=== PATIENT | female | born 2000 | race Caucasian/White ===

== ENCOUNTER 2020-10-28 09:55 | Outpatient (REF) | payer OTHER, SELFPAY ==
[2020-10-28 10:26] LABS: COVID-19 Test Negative (Negative)
== END 2020-10-28 09:56 | disposition home or self-care (01) ==
LOC: HO.LAB 09:55
PROVIDERS: Visit Provider Internal Medicine
DX: Z20.822 Contact with and (suspected) exposure to COVID-19 (principal)
CPT/HCPCS: 36415; 87635; C9803

== ENCOUNTER 2024-09-01 19:51 | Inpatient (IN) | payer OTHER, SELFPAY ==
--- NOTE | ~2024-09-01 | US_ITS ---
CLINICAL HISTORY: RUQ pain and tenderness, pls eval for GB stones US Abdomen Limited, Right Upper Quadrant COMPARISON: None provided FINDINGS: Echogenic, shadowing calculi in the gallbladder including a nonmobile calculus in the gallbladder neck. No gallbladder wall thickening. No pericholecystic fluid. Positive sonographic Franks sign. No bile duct dilation. Common bile duct measures 4 mm in diameter. IMPRESSION: Cholelithiasis and positive sonographic Franks sign consistent with acute cholecystitis. This document has been electronically signed by: Adrian Weems MD on 09/01/2024 23:25:37
[2024-09-01 19:53] VITALS: BP 122/83; PULSE 85; RESP 16; TEMP 36.8; O2SAT 98; BMI 50.9
--- NOTE | 2024-09-01 19:53 | ED.ABDPAIN ---
HPI - Abdominal Pain General Chief Complaint: Abdominal Pain Stated Complaint: abd pain & upper back pain Time Seen by Provider: 09/01/24 21:32 History of Present Illness ED Provider: Pancho FONG narrative: The patient is a 23-year-old female who is generally healthy. She has no history of abdominal surgeries. She says a couple of weeks ago she had an episode of right upper quadrant pain after a meal. She may have had some milder episodes in the ensuing 2 weeks but she developed severe pain this evening at around 19:00 after eating ice cream. She feels like the pain waxes and wanes. Sometimes she feels like it is a belt around her upper abdomen. For the most part however she feels the pain in the right upper quadrant. It is somewhat worse when she takes a deep breath. Nausea but no vomiting. No fever, sweats, chills. Related Data Allergies Allergy/AdvReac Type Severity Reaction Status Date / Time No Known Allergies Allergy Verified 09/01/24 19:56 Review of Systems Review of Systems Yes all other systems are reviewed and are negative [facility] Social History Social History Alcohol intake: current Alcohol intake frequency: holidays/special occasions only Smoked in Last 30 Days: Yes Use of substances other than those prescribed or required for medical reasons: Yes Substance Use Type: Marijuana Substance Use Frequency: Daily Advance Directives: No Advance Directives Information Provided: No Do you have a plan to hurt others: No Plan Patient : No Physical Exam ED Vital Signs: Vital Signs - 24 hr 09/01/24 19:53 09/01/24 22:11 Temperature 98.2 F 98.2 F Pulse Rate 85 77 Respiratory Rate 16 18 Blood Pressure 122/83 140/87 H Pulse Oximetry 98 100 Oxygen Delivery Method Room Air Room Air BMI result Body Mass Index 50.9 Const Other: The patient is awake, alert, pleasant, cooperative. She looks uncomfortable. Orientation/consciousness: patient oriented x3 HENMT Other: The face is symmetrical. ?Mucous membranes moist. Eyes Other: Pupils are round equal, conjunctivae are clear, extraocular movements intact Neck Neck: Yes normal visual inspection and Yes full ROM Resp Effort & Inspection: normal respiratory effort Auscultation: clear to auscultation bilaterally Cardio Rate: regular rate Rhythm: regular rhythm Heart sounds: S1 normal heart sound present and S2 normal heart sound present GI Other: The patient is quite tender in the right upper quadrant. The rest of the abdomen is soft and nontender. General: Yes no CVA tenderness Back/Spine/Pelvis Back: no CVA tenderness Skin Other: The skin is dry and unremarkable Neuro General: patient oriented x3, tone normal, moves all extremities, no focal motor deficits and CN's II-XI intact bilaterally Extrem Other: There is no calf swelling or tenderness. No asymmetry. No peripheral edema. Course Course Course Narrative: 09/01/241953 KIMBERLEY Ibarra This is a Rapid Medical Examination (RME) performed by Jaz Wagner PA-C in triage. Full HPI, ROS, assessment and treatment plan per primary provider in the Main ED. Hx: 23 yo F here for eval of RUQ abd pain radiating to back, occrrs after she eats. similar pain 1 wk ago that resolved. Plan: labs Medical Decision Making Medical Decision Making [facility] Narrative: The patient is a 23-year-old female presents with right upper quadrant pain. She says that sometimes she feels that the pain is circling her entire abdomen at the upper abdominal level. Her description of the pain seems highly suggestive of a biliary etiology. Also suggestive of a biliary etiology is the fact that her pain started after she ate ice cream this evening. Pain started at around 19:30. She has had some lesser episodes of pain intermittently over the last couple of weeks. I performed a informal bedside ultrasound at the time of my initial exam that suggested cholelithiasis. Formal ultrasound shows an impacted gallstone and a sonographic Franks's but no gallbladder wall thickening or pericholecystic fluid. She is afebrile and other vital signs are also normal. Her WBC is 11.9. Her differential shows 52% neutrophils and 36% lymphocytes. Overall my impression is that the patient is having severe biliary colic secondary to symptomatic cholelithiasis. Although the ultrasound was read as possibly showing cholecystitis I do not think the patient has a acute cholecystitis. I think she has severely symptomatic cholelithiasis with gallstone impaction. I reviewed the case with Dr. Parra of General surgery who will admit the patient with a plan for cholecystectomy later today. The patient will receive prophylactic antibiotics, ceftriaxone and metronidazole. I am ordering these antibiotics as prophylaxis. I do not believe the patient is septic. The patient was also given IV fluids and pain medications. She was admitted to the surgical service. Lab Data 09/01/24 20:04 09/01/24 20:04 Labs: Lab Results 09/01/24 Range/Units 20:04 WBC 11.9 H (4.8-10.8) X10*3/uL RBC 4.90 (4.20-5.50) X10*6/uL Hgb 14.2 (12.0-16.0) g/dl Hct 42.0 (37.0-47.0) % MCV 85.7 (80.0-98.0) fL MCH 29.0 (27.0-33.0) pg MCHC 33.8 (31.0-35.0) g/dl RDW 13.7 (11.0-16.0) % Plt Count 330 (160-400) X10*3/uL MPV 9.8 (9.4-12.3) fL Immature Gran % (Auto) 0.5 H (0.0-0.4) % Neut % (Auto) 52.2 (45-73) % Lymph % (Auto) 36.2 (20-40) % [place] % (Auto) 8.7 (2-11) % Eos % (Auto) 1.7 (0-4) % Baso % (Auto) 0.7 (0-2) % Lymph # (Auto) 4.3 (1.2-4.9) X10*3/uL [place] # (Auto) 1.0 (0.1-1.2) X10*3/uL Eos # (Auto) 0.2 (0.0-0.4) X10*3/uL Baso # (Auto) 0.1 (0.0-0.2) X10*3/uL Abs Immat Gran (auto) 0.06 H (0.00-0.03) X10*3/uL Absolute Neuts (auto) 6.2 (2.0-8.3) x10*3/uL Absolute Nucleated RBC 0.000 (0.0-0.012) X10*3/uL Nucleated RBC % (auto) 0.0 (0.0-0.2) /100WBC Sodium 140 (135-145) mmol/L Potassium 4.0 (3.3-5.1) mmol/L Chloride 108 (96-108) mmol/L Carbon Dioxide 23 (22-29) mmol/L Anion Gap 13 (12-20) BUN 11 (9-16) mg/dL Creatinine 0.76 (0.5-1.4) mg/dL Estim Creat Clear Calc 156.0 Estimated GFR > 60 Random Glucose 95 (60-115) mg/dL Calcium 9.8 (8.4-10.2) mg/dL Total Bilirubin 0.2 (0.0-1.0) mg/dL Direct Bilirubin < 0.2 (0.0-0.5) mg/dL AST 19 (5-31) U/L ALT 23 (0-31) U/L Alkaline Phosphatase 57 (39-117) U/L Total Protein 7.2 (6.5-8.0) g/dL Albumin 4.0 (3.5-5.0) g/dL Beta HCG, Quant < 2 mIU/mL Medications Administered Generic Name Dose Route Start Last Admin Trade Name Jaya PRN Reason Stop Dose Admin Lactated Ringer's 1,000 mls @ 125 mls/hr 09/02/24 00:45 09/02/24 00:56 Lr IVCONT 125 mls/hr .Q8H MARITZA Administration Discontinued Medications Generic Name Dose Route Start Last Admin Trade Name Jaya PRN Reason Stop Dose Admin Ceftriaxone Sodium 2 gm 09/02/24 00:24 09/02/24 00:35 Ceftriaxone Sodium 2 Gm Vial IVPUSH 09/02/24 00:25 2 gm ONCE ONE Administration Droperidol 0.625 mg 09/01/24 21:43 09/01/24 22:07 Droperidol 5 Mg/2 Ml Vial IVPUSH 09/01/24 21:44 0.625 mg ONCE ONE Administration Sodium Chloride 1,000 mls @ 999 mls/hr 09/01/24 21:45 09/02/24 00:30 Ns IV 09/01/24 22:45 Infused .Q1H1M MARITZA Infusion Metronidazole 500 mg in 100 mls @ 100 mls/hr 09/02/24 00:24 09/02/24 00:55 Flagyl IV 09/02/24 01:23 100 mls/hr ONCE ONE Administration Ketorolac Tromethamine 15 mg 09/01/24 21:43 09/01/24 22:07 Ketorolac Tromethamine 15 Mg/Ml Vial IVPUSH 09/01/24 21:44 15 mg ONCE ONE Administration Morphine Sulfate 4 mg 09/01/24 23:24 09/01/24 23:28 Morphine Sulfate 4 Mg/Ml Cartridge IVPUSH 09/01/24 23:25 4 mg ONCE ONE Administration Protocol Critical Care Time Critical Care Time Critical Care Time: Yes Total Critical Care Time: 35 Attestation: The patient was critically ill with a high probability of imminent or life-threatening deterioration. ?I spent greater than 30 minutes of discontinuous time evaluating the patient, delivering critical care at the bedside, discussing evaluating data with consultants. ?Critical care time does not include time spent performing separately billable procedures or teaching. ?Time spent performing critical care with 35 minutes. Discharge Plan Discharge Clinical Impression: Symptomatic cholelithiasis, Biliary colic Patient Disposition: Admitted As Inpatient
[2024-09-01 20:15] LABS: Hematocrit 42.0 % (37.0-47.0); Hemoglobin 14.2 g/dl (12.0-16.0); Imm Gran Abs Auto 0.06 X10*3/uL (0.00-0.03); Imm Gran Pct Auto 0.5 % (0.0-0.4); Lymphocytes Absolute Auto 4.3 X10*3/uL (1.2-4.9); MANUAL DIFF FLAG NO; Mean Corpuscular HGB Conc 33.8 g/dl (31.0-35.0); Mean Corpuscular Hemoglobin 29.0 pg (27.0-33.0); Mean Corpuscular Volume 85.7 fL (80.0-98.0); NRBC Abs Auto 0.000 X10*3/uL (0.0-0.012); NRBC Pct Auto 0.0 /100WBC (0.0-0.2); Platelet Count 330 X10*3/uL (160-400); Red Blood Count 4.90 X10*6/uL (4.20-5.50); White Blood Count 11.9 X10*3/uL (4.8-10.8)
[2024-09-01 20:35] LABS: Alanine Aminotransferase 23 U/L (0-31); Albumin Level 4.0 g/dL (3.5-5.0); Alkaline Phosphatase 57 U/L (39-117); Anion Gap 13 (12-20); Aspartate Amino Transferase 19 U/L (5-31); Blood Urea Nitrogen 11 mg/dL (9-16); Calcium 9.8 mg/dL (8.4-10.2); Carbon Dioxide 23 mmol/L (22-29); Chloride 108 mmol/L (96-108); Creatinine Clr Calc Pharmacy 156.0; Estimated Glomerular Filt Rate > 60; Potassium 4.0 mmol/L (3.3-5.1); Sodium 140 mmol/L (135-145); Total Protein 7.2 g/dL (6.5-8.0)
[2024-09-01 22:11] VITALS: BP 140/87; PULSE 77; RESP 18; TEMP 36.8; O2SAT 100
[2024-09-02 00:35] VITALS: BP 124/76; PULSE 67; RESP 16; TEMP 36.6; O2SAT 100
[2024-09-02] MEDS: metroNIDAZOLE/NS 500 MG/100 ML PIGGYBACK 100 MG IV (00:55)
[2024-09-02] MEDS: Lactated Ringers 1,000 ML 125 ML IVCONT ×3 (00:56→16:42)
--- NOTE | 2024-09-02 00:58 | PC.NURSE ---
pt resting comfortably at this time, breathing even and unlabored, no apparent distress noted, call hinton w/in reach
[2024-09-02 02:14] VITALS: BMI 51.5
[2024-09-02 02:17] VITALS: BP 134/86; PULSE 69; RESP 17; TEMP 36.2; O2SAT 98
--- NOTE | 2024-09-02 06:02 | PM.HPGS ---
History of Present Illness History of Present Illness Date of Service: 09/02/24 <Roberta Holcomb PA-C - Last Filed: 09/02/24 15:03> 09/02/24 <Yaw Cheng MD - Last Filed: 09/02/24 15:30> Chief complaint: abdominal pain <Roberta Holcomb PA-C - Last Filed: 09/02/24 15:03> Narrative: Olga Gallagher is a 23 year old female with PMH of IBS, depression who presented to the ED with complaints of acute onset of RUQ pain. The pain began last night after eating ice cream and was sharp and severe in nature. It was constant but waxed and waned in severity. She reports the pain wraps around the side of her abdomen towards her back and across her upper abdomen. The pain was associated with nausea without vomiting. She reports a similar episode of pain within the past couple of weeks that resolved on its own and was milder in nature. Due to the severity and persistence of pain, she presented to the ED for evaluation. She was found to be tender in the RUQ. Work up included CBC, BMP, LFTs which was significant for WBC of 11.9. ABD US was performed which showed gallstones, borderline mild wall thickening of the gallbladder with positive ultrasonic acosta sign. She reports feeling slightly improved this morning. She denies fever, chills, sick contacts, change in skin color, urine color. She reports diarrhea but reports this is normal with her IBS. Denies prior surgery. <Roberta Holcomb PA-C - Last Filed: 09/02/24 15:03> Review of Systems Review of Systems: Yes all other systems are reviewed and are negative <Roberta Holcomb PA-C - Last Filed: 09/02/24 15:03> [facility] Past Medical History Medical History: Medical History (Updated 09/02/24 @ 08:18 by Roberta Holcomb PA-C) No known health problems <Roberta Holcomb PA-C - Last Filed: 09/02/24 15:03> Social History Social History: Social History Household Members: Significant Other and Other Household Members Other:: fiance and roomate Housing: Apartment Alcohol intake: current Alcohol intake frequency: holidays/special occasions only Patient Tobacco Use Status: Current someday Tobacco user Tobacco use type: Cigarette Cigarettes Per Day: 0 Years Smoked: 1 Smoked in Last 30 Days: Yes Patient Interested in Nicotine Replacement: No Second Hand Smoke Exposure: No Use of substances other than those prescribed or required for medical reasons: Yes Substance Use Type: Marijuana Substance Use Frequency: Daily Currently Displaying Signs/Symptoms of Drug Intoxication Withdrawal: No Have you been hit, kicked, punched, or otherwise hurt by someone within the past year? If so, by whom?: No Do you feel safe in your current relationship?: Yes Is there a partner from a previous relationship who is making you feel unsafe now?: No Are you made to feel afraid or neglected: No Advance Directives: No Advance Directives Information Provided: No Do you have a plan to hurt others: No Plan Recently lost weight without trying: No Eating poorly because of decreased appetite: No Nutrition Risks: No Nutritional Risk Patient : No : No service: No <Roberta Holcomb PA-C - Last Filed: 09/02/24 15:03> Meds Allergies/Adverse reactions: Allergies Allergy/AdvReac Type Severity Reaction Status Date / Time No Known Allergies Allergy Verified 09/01/24 19:56 <Roberta Holcomb PA-C - Last Filed: 09/02/24 15:03> Active Medications: Current Medications Acetaminophen (Acetaminophen 325 Mg Tablet) 650 mg PO Q6H PRN PRN Reason: Pain, Mild 1-3,fever,headache Lactated Ringer's (Lr) 1,000 mls @ 125 mls/hr IVCONT .Q8H [facility] Last Admin: 09/02/24 00:56 Dose: 125 mls/hr Morphine Sulfate (Morphine Sulfate 4 Mg/Ml Cartridge) 4 mg IVPUSH RQ4H PRN; Protocol PRN Reason: Pain, Severe (Pain Scale 7-10) Ondansetron HCl (Ondansetron Hcl 4 Mg/2 Ml Vial) 4 mg IVPUSH Q8H PRN PRN Reason: Nausea and Vomiting Sodium Chloride (0.9 % Sodium Chloride Flush 3 Ml Syringe) 3 ml IVFLUSH QSHIFT [facility] <Roberta Holcomb PA-C - Last Filed: 09/02/24 15:03> Home medications: Home Medications ?Medication ?Instructions ?Recorded ?Confirmed ?Last Taken ?Type aripiprazole 15 mg tablet 7.5 mg PO DAILY depressive disorder 09/02/24 09/02/24 09/01/24 09:00 History escitalopram oxalate 10 mg tablet 15 mg PO DAILY depressive disorder 09/02/24 09/02/24 09/01/24 09:00 History hydroxyzine HCl 25 mg tablet 25 - 50 mg PO BEDTIME PRN insomnia 09/02/24 09/02/24 09/01/24 09:00 History methylphenidate HCl 10 mg 10 mg PO DAILY 09/02/24 09/02/24 09/01/24 09:00 History tablet,extended release <TARAS Flower Last Filed: 09/02/24 15:03> Physical Exam Vital Signs: Vital Signs: Last Vital Signs Temp 97.1 F 09/02/24 02:17 Pulse 69 09/02/24 02:17 Resp 17 09/02/24 02:17 BP 134/86 09/02/24 02:17 Pulse Ox 98 09/02/24 02:17 O2 Del Method Room Air 09/02/24 02:17 BMI result Body Mass Index 51.5 <TARAS Flower Last Filed: 09/02/24 15:03> Const: General: comfortable, no acute distress and alert <TARAS Flower Last Filed: 09/02/24 15:03> Orientation/consciousness: patient oriented x3 <TARAS Flower Last Filed: 09/02/24 15:03> Resp: Effort & Inspection: normal respiratory effort <TARAS Flower Last Filed: 09/02/24 15:03> GI: Other: markedly corpulent abdomen RUQ tender to palpation, negative acosta sign <TARAS Flower Last Filed: 09/02/24 15:03> Palpation (GI): no guarding and not rigid <TARAS Flower Last Filed: 09/02/24 15:03> Percussion: Yes normal to percussion <TARAS Flower Last Filed: 09/02/24 15:03> Skin: General skin exam: no rashes or lesions noted and no jaundice <TARAS Flower Last Filed: 09/02/24 15:03> Neuro: General: patient oriented x3 and moves all extremities <TARAS Flower Last Filed: 09/02/24 15:03> Results Results Labs: Short CBC 09/01/24 Range/Units 20:04 WBC 11.9 H (4.8-10.8) X10*3/uL Hgb 14.2 (12.0-16.0) g/dl Hct 42.0 (37.0-47.0) % Plt Count 330 (160-400) X10*3/uL BMP 09/01/24 20:04 Sodium 140 Potassium 4.0 Chloride 108 Carbon Dioxide 23 BUN 11 Creatinine 0.76 Calcium 9.8 Liver Function 09/01/24 Range/Units 20:04 Total Bilirubin 0.2 (0.0-1.0) mg/dL Direct Bilirubin < 0.2 (0.0-0.5) mg/dL AST 19 (5-31) U/L ALT 23 (0-31) U/L Alkaline Phosphatase 57 (39-117) U/L Albumin 4.0 (3.5-5.0) g/dL <TARAS Flower Last Filed: 09/02/24 15:03> Abdominal ultrasound report/results: report reviewed and image reviewed <Roberta Holcomb PA-C Irvin Last Filed: 09/02/24 15:03> Assessment and Plan (1) Acute cholecystitis due to biliary calculus: Status: Acute <TARAS Flower Last Filed: 09/02/24 15:03> 23 year old female with PMH of IBS, depression who presented to the ED with acute onset of RUQ pain found to have leukocytosis, gallstones and mild wall thickening on ABD US. She reports continued RUQ pain but slightly improved this morning and remains tender in the RUQ. Given the persistence of pain, clinical picture consistent with early acute cholecystitis. Risks, benefits, alternatives of laparoscopic possible open cholecystectomy were reviewed with the patient including but not limited to bleeding, infection, numbness, pain, poor healing, injury to the liver, bowel or bile ducts, leak, retained stones and the patient wishes to proceed.? Arrangements will be made for this.?All questions were answered. Cont NPO status, IVF, IV abx. <Roberta Holcomb PA-C - Last Filed: 09/02/24 15:03> 23 year old female with PMH of IBS, depression who presented to the ED with acute onset of RUQ pain found to have leukocytosis, gallstones and mild wall thickening on ABD US. She reports continued RUQ pain but slightly improved this morning and remains tender in the RUQ. Given the persistence of pain, clinical picture consistent with early acute cholecystitis. Risks, benefits, alternatives of laparoscopic possible open cholecystectomy were reviewed with the patient including but not limited to bleeding, infection, numbness, pain, poor healing, injury to the liver, bowel or bile ducts, leak, retained stones and the patient wishes to proceed.? Arrangements will be made for this.?All questions were answered. Cont NPO status, IVF, IV abx. Patient seen and examined independently and I concur with the above assessment and plan. Findings suggestive of acute cholecystitis due to cholelithiasis. I also reviewed the procedure, risks and alternatives of laparoscopic and open cholecystectomy and she consents to a laparoscopic or possible open cholecystectomy. She will be added onto the OR schedule. Due to scheduling issues. She has been placed on the OR schedule for tomorrow morning. <Yaw Cheng MD - Last Filed: 09/02/24 15:30> Quality Stroke Does the patient have a stroke diagnosis?: No <Roberta Holcomb PA-C - Last Filed: 09/02/24 15:03> VTE Prior VTE?: No <Roberta Holcomb PA-C - Last Filed: 09/02/24 15:03> VTE Risk Level:: Surgical - low <Roberta Holcomb PA-C - Last Filed: 09/02/24 15:03> VTE Device Contraindication: N/A - Device Ordered <Roberta Holcomb PA-C - Last Filed: 09/02/24 15:03> VTE Drug Contraindication: Treatment Not Indicated <Roberta Holcomb PA-C - Last Filed: 09/02/24 15:03> Procedures Date of Service Date of Service: 09/02/24 <Roberta Holcomb PA-C - Last Filed: 09/02/24 15:03> 09/02/24 <Yaw Cheng MD - Last Filed: 09/02/24 15:30>
[2024-09-02 06:51] VITALS: BP 133/72; PULSE 87; RESP 15; TEMP 36.6; O2SAT 99
--- NOTE | 2024-09-02 08:08 | PHA.MEDREC ---
Pharmacy Consult ? Medication Reconciliation Pharmacy has completed the medication reconciliation. Spoke with patient at bedside, they were able to tell me what they take at home. States Aripiprazole is 7.5mg, escitalopram is 15mg, and that the methylphenidate is taken prn. Will leave methylphenidate as daily, since that's how it was filled most recently.
--- NOTE | 2024-09-02 09:02 | MHC.CM.PN ---
PT REPORTS SHE LIVES WITH HER FIANCE AND A ROOMMATE SHE IS INDEPENDENT WITH CARE AND WORKS PT HAS NO DME AND NO SERVICES SHE DECLINES A HCP SHE DOES NOT HAVE A PCP, TASK SENT TO DETERMINE IF [facility] HAD OPENINGS DCP: HOME NO SERVICES VIA PRIVATE TRANSPORT
[2024-09-02 11:08] VITALS: BP 142/80; PULSE 93; RESP 16; TEMP 36.8; O2SAT 99
[2024-09-02 15:14] VITALS: BP 119/69; PULSE 89; RESP 15; TEMP 36.4; O2SAT 97
[2024-09-02 19:14] VITALS: BP 126/73; PULSE 80; RESP 18; TEMP 36.6; O2SAT 98
[2024-09-02] MEDS: 0.9 % Sodium Chloride Flush 3 ML SYRINGE IVFLUSH (22:05)
[2024-09-03] VITALS (17 sets, daily range): BP systolic 115–146; BP diastolic 57–91; PULSE 58–95; RESP 15–28; TEMP 36.2–36.8; O2SAT 90–100
[2024-09-03] MEDS: Lactated Ringers 1,000 ML 125 ML IVCONT (00:45)
--- NOTE | 2024-09-03 07:14 | HO.ANESPROP2 ---
FORM[facility]LY [facility], LAT[facility] Active Problems Active Problems: All Active Problems Acute cholecystitis due to biliary calculus (Acute) Biliary colic (Acute) Symptomatic cholelithiasis (Acute) Past Medical History Medical History No known health problems Family History Family history of problems with anesthesia: No Surgical History History of Problems with Anesthesia: No Social History Social History Household Members: Significant Other and Other Household Members Other:: fiance and roomate Housing: Apartment Alcohol intake: current Alcohol intake frequency: holidays/special occasions only Patient Tobacco Use Status: Current someday Tobacco user Tobacco use type: Cigarette Cigarettes Per Day: 0 Years Smoked: 1 Smoked in Last 30 Days: Yes Patient Interested in Nicotine Replacement: No Second Hand Smoke Exposure: No Use of substances other than those prescribed or required for medical reasons: Yes Substance Use Type: Marijuana Substance Use Type Other:: smoked- last used monday Substance Use Frequency: Daily Currently Displaying Signs/Symptoms of Drug Intoxication Withdrawal: No Have you been hit, kicked, punched, or otherwise hurt by someone within the past year? If so, by whom?: No Do you feel safe in your current relationship?: Yes Is there a partner from a previous relationship who is making you feel unsafe now?: No Are you made to feel afraid or neglected: No Are you DNR?: No Advance Directives: No Advance Directives Information Provided: No Do you have a plan to hurt others: No Plan Recently lost weight without trying: No Eating poorly because of decreased appetite: No Nutrition Risks: No Nutritional Risk Patient : No : No service: No Meds Allergies Allergy/AdvReac Type Severity Reaction Status Date / Time No Known Allergies Allergy Verified 09/01/24 19:56 Active Medications: Current Medications Acetaminophen (Acetaminophen 325 Mg Tablet) 650 mg PO Q6H PRN PRN Reason: Pain, Mild 1-3,fever,headache Lactated Ringer's (Lr) 1,000 mls @ 125 mls/hr IVCONT .Q8H [facility] Last Admin: 09/03/24 00:45 Dose: 125 mls/hr Piperacillin Sod/Tazobactam (Sod 3.375 gm/ Sodium Chloride) 50 mls @ 100 mls/hr IV Q6H [facility] Last Infusion: 09/03/24 05:39 Dose: Infused Morphine Sulfate (Morphine Sulfate 4 Mg/Ml Cartridge) 4 mg IVPUSH RQ4H PRN; Protocol PRN Reason: Pain, Severe (Pain Scale 7-10) Ondansetron HCl (Ondansetron Hcl 4 Mg/2 Ml Vial) 4 mg IVPUSH Q8H PRN PRN Reason: Nausea and Vomiting Sodium Chloride (0.9 % Sodium Chloride Flush 3 Ml Syringe) 3 ml IVFLUSH QSHIFT [facility] Last Admin: 09/02/24 22:05 Dose: 3 ml Home Medications ?Medication ?Instructions ?Recorded ?Confirmed ?Last Taken ?Type aripiprazole 15 mg tablet 7.5 mg PO DAILY depressive disorder 09/02/24 09/02/24 09/01/24 09:00 History escitalopram oxalate 10 mg tablet 15 mg PO DAILY depressive disorder 09/02/24 09/02/24 09/01/24 09:00 History hydroxyzine HCl 25 mg tablet 25 - 50 mg PO BEDTIME PRN insomnia 09/02/24 09/02/24 09/01/24 09:00 History methylphenidate HCl 10 mg 10 mg PO DAILY 09/02/24 09/02/24 09/01/24 09:00 History tablet,extended release Exam Height,Weight and Vital Signs: Height 5 ft 4 in Weight 136 kg Last Vital Signs Temp 97.9 F 09/03/24 06:32 Pulse 83 09/03/24 06:32 Resp 15 09/03/24 06:32 BP 145/91 H 09/03/24 06:32 Pulse Ox 97 09/03/24 06:32 O2 Del Method Room Air 09/03/24 06:32 Pertinent Lab Results Pertinent Lab Results: Laboratory Tests 09/01/24 20:04 WBC 11.9 H RBC 4.90 Hgb 14.2 Hct 42.0 MCV 85.7 MCH 29.0 MCHC 33.8 RDW 13.7 Plt Count 330 MPV 9.8 Immature Gran % (Auto) 0.5 H Neut % (Auto) 52.2 Lymph % (Auto) 36.2 [place] % (Auto) 8.7 Eos % (Auto) 1.7 Baso % (Auto) 0.7 Lymph # (Auto) 4.3 [place] # (Auto) 1.0 Eos # (Auto) 0.2 Baso # (Auto) 0.1 Abs Immat Gran (auto) 0.06 H Absolute Neuts (auto) 6.2 Absolute Nucleated RBC 0.000 Nucleated RBC % (auto) 0.0 Sodium 140 Potassium 4.0 Chloride 108 Carbon Dioxide 23 Anion Gap 13 BUN 11 Creatinine 0.76 Estim Creat Clear Calc 156.0 Estimated GFR > 60 Random Glucose 95 Calcium 9.8 Total Bilirubin 0.2 Direct Bilirubin < 0.2 AST 19 ALT 23 Alkaline Phosphatase 57 Total Protein 7.2 Albumin 4.0 Beta HCG, Quant < 2 Airway Mallampati Class: II (thick neeck) TM Dist: >3cm Neck ROM: Full Heart: rrr Lungs: cta Assessment and Plan Assessment Anesthesia Assessment: Anesthesia Plan Discussed and Chart Reviewed Final Anesthetic Review Family History of Problems with Anesthesia: No History of Problems with Anesthesia: No NPO: Yes ASA Class: III Final Preanesthetic Review: No Changes in Pt Med Stat, Meds/Allgs Chart Reviewed and Consent Obtained/Reviewed Patient Risk: Intermediate Procedure Risk: Low Anesthetic Plan Anesthetic Plan: GA Disposition: Standard PACU
--- NOTE | 2024-09-03 07:25 | MHC.SHP ---
Pre-Procedural Eval Section A - 24 Hr Update-Section A only Date of Service: 09/03/24 The patient is an INPATIENT: Yes Changes since office visit: Yes Patient answered all questions; No Cold of Flu in the past 2 weeks, No New Medical Problems and No Changes in Medication The patient has been examined within 24 hours of the surgical procedure. The History & Physical has been completed within 30 days and I have reviewed it.: Yes Section B - Complete if H&P > 30 days Chief Complaint: abdominal pain Allergies: Allergies Allergy/AdvReac Type Severity Reaction Status Date / Time No Known Allergies Allergy Verified 09/01/24 19:56 Plan Diagnosis/Plan: Unchanged I have reviewed the history and physical and performed a pertinent physical examination on my patient. No changes have occurred unless specified. Time Spent With Patient Time: Total time managing care of this patient today ____ minutes.
--- NOTE | 2024-09-03 08:53 | P.OP_ITS ---
Operative Note Operative Note Date of Service: 09/03/24 Narrative: Preoperative diagnosis: Acute cholecystitis due to cholelithiasis Postoperative diagnosis: Same Procedure: Laparoscopic cholecystectomy Surgeon: Yaw Cheng MD Quiller Hand: LAURA Flower, Raj BARBA Anesthesia: General endotracheal Indications for procedure: 23-year-old female patient presenting with complaints of abdominal pain in the right upper quadrant of increasing severity with the weekend subsequently presenting to the emergency department for further evaluation. She was found to have evidence of acute cholecystitis due to cholelithiasis. Operative findings: Evidence of acute and chronic cholecystitis with a large gallstone at the neck of the gallbladder Specimen: gallbladder Estimated blood loss: Less than 2 mL Complications: None Procedure details: Patient was brought to the OR and placed in a supine position. After administering general anesthesia the patient's abdomen was prepped with ChloraPrep and draped in a sterile fashion. A surgical time-out was called the consent confirmed. Patient received preoperative antibiotics and Venodyne boots were in place. Local anesthesia consisting of 0.5% Sensorcaine without epinephrine was infiltrated in a periumbilical region. A 5 mm incision was made above the umbilicus in a transverse fashion. The Veress needle was then inserted while elevating abdominal cavity with towel clips. After positive drop test the abdomen was insufflated to a pressure of 15 mm of mercury. The Veress needle was then removed and a 5 mm trocar inserted. The camera was inserted in the abdomen explored. A 12 mm trocar was then placed in the epigastrium. Two 5 mm trocars placed in the right upper quadrant by the assistant casino shift manager. The patient was placed in reverse Trendelenburg positioning and rotated to the left. The gallbladder was grasped with the fundus and retracted cephalad by the assistant casino shift manager. The infundibulum was then grasped and retracted away from the liver bed, also by the assistant casino shift manager. The Dolphin dissected was then used by the surgeon to dissect the peritoneum off the infundibulum to reveal the junction with the cystic duct. Cystic artery was noted slightly medial and posterior to the cystic duct. After obtaining a critical view the cystic duct was doubly clipped and divided. The cystic artery was then doubly clipped and divided. The gallbladder was then dissected off the liver bed using electrocautery with an L hook. Hemostasis was assured all times using the electrocautery. When the gallbladder is completely dissected off the liver bed was placed in an Endo-Catch bag and brought out through the epigastric incision. The gallbladder was sent to pathology for further examination. The abdomen was then re-examined. The liver bed was irrigated and suctioned dry. No bleeding or bile leak could be identified. CO2 was then evacuated and all trocars removed. Fascia was closed at the epigastric incision using a [id number] 0 Polysorb suture. Skin was closed in all incisions using a subcuticular 4 0 Polysorb suture by both the surgeon and assistant casino shift manager. Sterile dressings consisting of Steri-Strips, 2 x 2 gauze, and Tegaderm were then applied. The patient tolerated the procedure well. Sponge instrument and needle counts reported as correct. The patient was transferred to PACU in stable condition.
--- NOTE | 2024-09-03 10:30 | PC.NURSE ---
Patient off unit for surgery at arrival for shift. Patient returned from OR around 10:[address] am. Bed alarm in place, call hinton within reach. Patient instructed to call for assistance when she needs to get up, patient verbalized understanding. Fiance at bedside.
--- NOTE | 2024-09-03 10:36 | P.CDIM_ITS ---
PROVIDER RESPONSE TEXT: To clarify, the appropriate diagnosis supported by the clinical indicators: Severe or Morbid Obesity QUERY TEXT: PHYSICIAN'S DOCUMENTATION REQUEST Date of Query: 09/02/2024 12:09 PM EDT Patient Name: LALITA ESTRADA Admit Date: 09/02/2024 Dear Asha Parra MD, A review of the medical record indicates additional documentation may be needed. Please review below and update the documentation accordingly. Clinical Indicators: Height: 5ft 4in Weight: 136kg BMI: 51.5 Other Clinical Notes Supporting Significance of the BMI: Nursing notes Height and Weight - Extreme obesity Class III If possible, please provide an associated diagnosis related to the abnormal BMI, such as: Severe or Morbid Obesity Obesity Other (explain) Clinically unable to determine (explain) Thank you, Nicki Galarza, CCS, CDIS Use of terms such as suspected, likely, concern for, or probable (associated with a specific diagnosis that is being evaluated, monitored, or treated as if it exists) are acceptable and can be coded in the inpatient setting, when documented at the time of discharge. Please use your independent medical judgment in providing your response. THIS QUERY IS PART OF THE PERMANENT MEDICAL RECORD
[2024-09-03] MEDS: 0.9 % Sodium Chloride Flush 3 ML SYRINGE IVFLUSH (10:43)
[2024-09-03] MEDS: oxyCODONE HCl Immed Release 5 MG TABLET PO (12:17)
--- NOTE | 2024-09-03 14:27 | PM.DS ---
DS: Providers Provider Date of Service: 09/03/24 Date of admission: 09/02/24 00:32 Date of discharge: 09/03/24 Primary care physician: Beena Physician Attending physician on admission: Asha Parra Attending physician on discharge: Yaw Cheng DS: Diagnosis Discharge Diagnosis (1) Acute cholecystitis due to biliary calculus: Status: Acute DS: Summary Hospital Course Hospital Course: HPI AT ADMISSION: Olga Gallagher is a 23 year old female with PMH of IBS, depression who presented to the ED with complaints of acute onset of RUQ pain. The pain began last night after eating ice cream and was sharp and severe in nature. It was constant but waxed and waned in severity. She reports the pain wraps around the side of her abdomen towards her back and across her upper abdomen. The pain was associated with nausea without vomiting. She reports a similar episode of pain within the past couple of weeks that resolved on its own and was milder in nature. Due to the severity and persistence of pain, she presented to the ED for evaluation. She was found to be tender in the RUQ. Work up included CBC, BMP, LFTs which was significant for WBC of 11.9. ABD US was performed which showed gallstones, borderline mild wall thickening of the gallbladder with positive ultrasonic acosta sign. She reports feeling slightly improved this morning. She denies fever, chills, sick contacts, change in skin color, urine color. She reports diarrhea but reports this is normal with her IBS. Denies prior surgery. HOSPITAL COURSE: The patient was admitted to the surgical service for further treatment of the acute cholecystitis. She elected to proceed with laparoscopic cholecystectomy, possible open. She was added onto the OR schedule for the following day. On 09/03/24, a laparoscopic cholecystectomy was performed by Dr. Cheng without complication. The patient tolerated the procedure well. She had an uncomplicated recovery course. She was seen later in the day on the day of surgery and felt well and was tolerating a solid diet without nausea or vomiting, had good pain control on oral analgesics and was ambulating without difficulty. She was hemodynamically stable. Her abdomen was benign with appropriate post op tenderness and clean and intact dressings. She felt ready for discharge. She was discharged to home on 09/03/24 in stable condition. She is to follow up in the office in 1 week. Status at Discharge Functional status at discharge: independent ambulation Overall status at discharge: patient is progressing back to baseline Time Attestation Discharge Coordination Time (in mins): 25 Quality: Safe Use of Opioids Does Pt have an Active Cancer Diagnosis on the Problem List?: No Quality: Stroke Does the patient have a stroke diagnosis?: No Physical Exam Vital Signs: Vital Signs: Last Vital Signs Temp 97.9 F 09/03/24 12:00 Pulse 86 09/03/24 12:00 Resp 18 09/03/24 12:00 BP 119/63 09/03/24 12:00 Pulse Ox 95 09/03/24 13:56 O2 Del Method Room Air 09/03/24 13:56 O2 Flow Rate 2 09/03/24 12:22 BMI result Body Mass Index 51.5 Const: General: comfortable, no acute distress and alert Orientation/consciousness: patient oriented x3 Resp: Effort & Inspection: normal respiratory effort GI: Inspection: No distended and Yes incision (dressings clean and intact) Palpation (GI): Soft to palpation, Tenderness to palpation present (GI) (mild incisional) and no guarding Skin: General skin exam: no rashes or lesions noted and no jaundice Neuro: General: patient oriented x3 and moves all extremities DS: Data Data Completed and Pending Pending studies at discharge: Pending at discharge 09/03/24 08:41 Surgical [PTH] Routine Discharge Plan Discharge Anticipated Discharge Date/Time: 09/04/24 08:56 Patient Disposition: Home, Self-Care Discharge Diagnosis: acute cholecystitis, s/p laparoscopic cholecystectomy Referrals: [facility] [Physician, Medical] - 1 Week Referral Note: Call [phone] to schedule a new patient appointment at your earliest convenience. Yaw Cheng MD [Physician, General Surgery] - 1 Week Discharge Medications: New docusate sodium [Colace] 100 mg capsule 100 mg PO BID Qty: 30 0RF oxycodone 5 mg tablet 5 mg PO Q4H PRN (Reason: pain (scale score 7-10)) Qty: 24 0RF Rx Instructions: Partial Fill upon patient request. Continued methylphenidate HCl 10 mg tablet extended release 10 mg PO DAILY hydroxyzine HCl 25 mg tablet 25 - 50 mg PO BEDTIME PRN (Reason: insomnia) escitalopram oxalate 10 mg tablet 15 mg PO DAILY aripiprazole 15 mg tablet 7.5 mg PO DAILY Discharge Orders: Discharge Order (Routine); Ordered 09/03/24 Ordered By: Roberta Holcomb Diet: Low fat, low cholesterol Activity on Discharge: No heavy lifting Stand Alone Forms: Patient Portal Discharge page, Work/School Release Print Language: Tunisian Activity Restrictions/Additional Instructions: If the incision area is tender, you may apply an ice pack for short intervals (No more than 20 minutes on, followed by at least 20 minutes off). Do not apply heat. Do not use creams, lotions, or topical antibiotics. Ok to shower. Remove clear dressings 3 days following your procedure. You have steri strips (small white cloth strips) covering your incision- these will fall off ~1 week. No heavy lifting (>10lbs) or strenuous activity! Take Tylenol Extra-strength 1-2 tabs every 6 hours for the first day, then as needed. Oxycodone every 6-8 hours as needed for pain. Colace 100 mg morning and night as needed for constipation. Follow up in office with Dr. Cheng in 1 week. ([phone]) Call Your Doctor If: -Your temperature exceeds 101.5? F -You experience excessive pain or swelling -You have an unexpected reaction to medication -You have excessive bleeding -You experience continued vomiting/nausea -Your incision begins to separate -Your incision shows signs of infection such as increased redness, swelling, excessive pain, drainage (light blood or clear fluid is normal) or heat Care Plan Goals: Return to baseline health and resume normal activities following recovery period. Health Concerns: acute cholecystitis Plan of Treatment: s/p laparoscopic cholecystectomy f/u in office in 1 week pain control Assessment: Doing well post op.
--- NOTE | 2024-09-03 14:56 | MHC.CM.PN ---
DP: PT HAS BEEN MEDICALLY CLEARED FOR DC HOME, NO SERVICES. PT HAS OWN RIDE HOME
== END 2024-09-03 15:17 | disposition home or self-care (01) | DRG 263 ==
LOC: HO.ED 09-02 00:03 → HO.EDOVER 09-02 00:41 → HO.S3 09-02 01:05
PROVIDERS: Physician Assistant Medical; Admitting Provider Surgery; Emergency Provider Emergency Medicine; Visit Provider Surgery
PROC: 0FT44ZZ Resection of Gallbladder, Percutaneous Endoscopic Approach (ICD-10-PCS; CPT 47562; principal; 2024-09-03 07:30)
DX: K80.00 Calculus of gallbladder with acute cholecystitis without obstruction (principal); Z68.43 Body mass index [BMI] 50.0-59.9, adult; F17.210 Nicotine dependence, cigarettes, uncomplicated; E66.01 Morbid (severe) obesity due to excess calories; Z71.6 Tobacco abuse counseling; Z71.3 Dietary counseling and surveillance; Z79.899 Other long term (current) drug therapy
CPT/HCPCS: 47562; 36415; 76705; 80048; 80076; 84702; 85025; 88304; 99221; 99285; J0330; J0665; J0696; J1100; J1630; J1790; J1836; J1885; J2003; J2250; J2270; J2405; J2543; J2704; J3010; J7120

== ENCOUNTER → 2024-09-01 21:44 | Outpatient (BNV) | payer OTHER, SELFPAY | PROVIDERS: Emergency Provider Emergency Medicine; Visit Provider Radiology Diagnostic Radiology | DX: K80.10 Calculus of gallbladder with chronic cholecystitis without obstruction (principal) | CPT/HCPCS: 76705 ==

== ENCOUNTER → 2024-09-02 00:32 | Outpatient (BNV) | payer OTHER, SELFPAY | PROVIDERS: Admitting Provider Surgery; Emergency Provider Emergency Medicine; Visit Provider Physician Assistant Surgical | DX: K80.00 Calculus of gallbladder with acute cholecystitis without obstruction (principal) | CPT/HCPCS: 47562; 99024; 99222 ==

== ENCOUNTER 2024-09-17 14:09 | Outpatient (AMB) | payer OTHER, SELFPAY ==
--- NOTE | 2024-09-17 14:09 | A.OFFVIS_ITS ---
Vital Signs 09/17/24 14:25 Height 54 ft Weight 295 lb BMI 0.5 BP 182/109 H Blood Pressure Location Lt brachial Position Sitting Pulse 88 Intake Visit Reasons: s/p cholecystectomy Intake Note: Patient is seen in office for post op assessment post cholecystectomy. Pt c/o: admits to reflux, nausea, GERD, even with out meals Vp Digital Marketing Required: No Accompanied by: Self / Same As Patient Allergies No Known Allergies Allergy (Verified 09/17/24 14:25) HPI Comments Details: 23-year-old female patient presenting for postop check following laparoscopic cholecystectomy for acute cholecystitis performed on 09/03/2024. She reports some incisional pain especially in the epigastric incision and occasional nausea without vomiting. She has been trying to stay away from fatty/greasy foods since the surgery. She denies any bleeding or discharge from her incisions. [facility] Medical History No known health problems Surgical History (Updated 09/17/24 @ 15:19 by Yaw Cheng MD) S/P laparoscopic cholecystectomy (09/03/24) Social History Household Members: Significant Other and Other Household Members Other:: fiance and roomate Housing: Apartment Alcohol intake: current Alcohol intake frequency: holidays/special occasions only Comment: patient moderate risk post surgery Patient Tobacco Use Status: Current someday Tobacco user Tobacco use type: Cigarette Cigarettes Per Day: 0 Years Smoked: 1 Second Hand Smoke Exposure: No Substance Use Type: Marijuana service: No Physical Exam Vital Signs: Last Vital Signs Pulse 88 09/17/24 14:25 BP 182/109 H 09/17/24 14:25 BMI result Body Mass Index 0.5 Const General: no acute distress Nutritional Appearance: well nourished Orientation/consciousness: patient oriented x3 Resp Effort & Inspection: normal respiratory effort GI Other: Soft, nondistended, well-healed trocar incisions without hernia or infection. Skin Other: Warm, dry, no rash Neuro General: patient oriented x3 Extrem Other: No edema Assessment & Plan Assessment & Plan (1) Symptomatic cholelithiasis: Code(s): K80.20 - Calculus of gallbladder without cholecystitis without obstruction Category: Medical (2) Biliary colic: Code(s): K80.50 - Calculus of bile duct without cholangitis or cholecystitis without obstruction Category: Medical (3) S/P laparoscopic cholecystectomy: Onset Date: 09/03/24 Comment: Dr. Cheng Code(s): Z90.49 - Acquired absence of other specified parts of digestive tract Category: Surgical Plan 23-year-old female status post laparoscopic cholecystectomy on 09/03/2024. She tolerated the procedure well and her wounds are healing nicely. She should continue to avoid lifting greater than 10 lb for 1 more week and should avoid fatty/fried foods. She should return as necessary. Medications: Discontinued oxycodone Partial Fill upon patient request. Discontinued Reason: Patient Completed Course 5 mg PO Q4H PRN 24 tabs 0RF pain (scale score 7-10) Coding Level of Care Code Global (92131) Diagnoses Symptomatic cholelithiasis K80.20 Biliary colic K80.50 S/P laparoscopic cholecystectomy Z90.49
[2024-09-17 14:25] VITALS: BP 182/109; PULSE 88
== END 2024-09-17 14:23 | disposition home or self-care (01) ==
LOC: HO.HGS 14:10
PROVIDERS: Visit Provider Surgery
DX: K80.20 Calculus of gallbladder without cholecystitis without obstruction (principal); K80.50 Calculus of bile duct without cholangitis or cholecystitis without obstruction; Z90.49 Acquired absence of other specified parts of digestive tract
CPT/HCPCS: 99024

== ENCOUNTER 2024-10-29 11:23 | Outpatient (REF) | payer OTHER, SELFPAY ==
[2024-10-29 12:10] LABS: MANUAL DIFF FLAG NO
[2024-10-29 12:43] LABS: Hematocrit 42.8 % (37.0-47.0); Hemoglobin 14.3 g/dl (12.0-16.0); Imm Gran Abs Auto 0.02 X10*3/uL (0.00-0.03); Imm Gran Pct Auto 0.2 % (0.0-0.4); Lymphocytes Absolute Auto 2.9 X10*3/uL (1.2-4.9); Mean Corpuscular HGB Conc 33.4 g/dl (31.0-35.0); Mean Corpuscular Hemoglobin 28.6 pg (27.0-33.0); Mean Corpuscular Volume 85.6 fL (80.0-98.0); NRBC Abs Auto 0.000 X10*3/uL (0.0-0.012); NRBC Pct Auto 0.0 /100WBC (0.0-0.2); Platelet Count 398 X10*3/uL (160-400); Red Blood Count 5.00 X10*6/uL (4.20-5.50); White Blood Count 9.2 X10*3/uL (4.8-10.8)
[2024-10-29 13:07] LABS: Alanine Aminotransferase 18 U/L (0-31); Albumin Level 4.1 g/dL (3.5-5.0); Alkaline Phosphatase 70 U/L (39-117); Anion Gap 11 (12-20); Aspartate Amino Transferase 19 U/L (5-31); Blood Urea Nitrogen 9 mg/dL (9-16); Calcium 9.5 mg/dL (8.4-10.2); Carbon Dioxide 24 mmol/L (22-29); Chloride 108 mmol/L (96-108); Estimated Glomerular Filt Rate > 60; Potassium 4.1 mmol/L (3.3-5.1); Sodium 139 mmol/L (135-145); Total Protein 7.4 g/dL (6.5-8.0)
== END 2024-10-29 11:24 | disposition home or self-care (01) ==
LOC: HO.LAB 11:23
PROVIDERS: Visit Provider Surgery
DX: R11.14 Bilious vomiting (principal); R11.2 Nausea with vomiting, unspecified; Z90.49 Acquired absence of other specified parts of digestive tract; D12.6 Benign neoplasm of colon, unspecified
CPT/HCPCS: 36415; 80048; 80076; 85025

== ENCOUNTER 2024-10-29 11:23 | Outpatient (AMB) | payer OTHER, SELFPAY ==
--- NOTE | 2024-10-29 11:37 | MHC.OFFVIS ---
Vital Signs 10/29/24 11:40 Height 5 ft 4 in Weight 293 lb 3.437 oz BMI 50.3 Respiration 18 Intake Visit Reasons: nausea and diarrhea bile colored, post lap cosmo Intake Note: Patient is seen in office for nausea and vomit, post lap cosmo 09/03/24. Pt c/o: bile colored for the past 3 weeks, only in the morning, nausea, vomit yellow liquid Proofer Black And White Required: No Accompanied by: Self / Same As Patient Allergies No Known Allergies Allergy (Verified 10/29/24 11:40) Medication List - Last Reconciled 10/29/24 by Yaw Cheng MD aripiprazole 7.5 mg PO DAILY docusate sodium (Colace) 100 mg PO BID escitalopram oxalate 15 mg PO DAILY hydroxyzine HCl 25 - 50 mg PO BEDTIME PRN methylphenidate HCl ER 10 mg PO DAILY HPI Comments Details: 24-year-old female patient returning to the office with complaints of 3 weeks history of nausea and vomiting felt mainly in the morning, usually with the patient 1st awakens. Usually by 09:00 the symptoms have improved and she was able to eat without further nausea. She is uncertain if this is related to her prior gallbladder surgery performed on 09/03/2024. She denies any fever or chills. She denies any significant abdominal pain. FORMERLY [facility] Medical History No known health problems Surgical History S/P laparoscopic cholecystectomy (09/03/24) Social History Household Members: Significant Other and Other Household Members Other:: fiance and roomate Housing: Apartment Alcohol intake: current Alcohol intake frequency: holidays/special occasions only Comment: patient moderate risk post surgery Patient Tobacco Use Status: Current someday Tobacco user Tobacco use type: Cigarette Cigarettes Per Day: 0 Years Smoked: 1 Second Hand Smoke Exposure: No Substance Use Type: Marijuana service: No Review of Systems Const All systems reviewed & are unremarkable except as noted in HPI and below Physical Exam Vital Signs: Last Vital Signs Resp 18 10/29/24 11:40 BMI result Body Mass Index 50.3 Const General: no acute distress Nutritional Appearance: well nourished Orientation/consciousness: patient oriented x3 Resp Effort & Inspection: normal respiratory effort GI Other: Soft, nondistended, well-healed trocar incisions without hernia or infection. Skin Other: Warm, dry, no rash Neuro General: patient oriented x3 Extrem Other: No edema Assessment & Plan Assessment & Plan (1) Nausea & vomiting: Code(s): R11.2 - Nausea with vomiting, unspecified Category: Medical Qualifiers: Vomiting type: bilious vomiting Qualified Code(s): R11.14 - Bilious vomiting (2) S/P laparoscopic cholecystectomy: Onset Date: 09/03/24 Comment: Dr. Cheng Code(s): Z90.49 - Acquired absence of other specified parts of digestive tract Category: Surgical Plan 24-year-old female patient with postoperative nausea and vomiting after laparoscopic cholecystectomy performed on 09/03/2024. She denies any changes in her medications. She was concerned that this may be related to her prior laparoscopic cholecystectomy. Examination reveals her abdomen to be soft and nondistended with well-healed incisions. I recommended further evaluation with laboratories and a follow-up CT abdomen and pelvis. She expressed understanding and agrees with the plan. She will follow up following the CT to review the results. Orders: Orders Liver Panel Today R11.2 - Nausea with vomiting, unspecified Complete Blood Count Auto Diff Today D12.6 - Benign neoplasm of colon, unspecified Basic Metabolic Panel Today R11.2 - Nausea with vomiting, unspecified CT abdomen pelvis w IV con Today R11.2 - Nausea with vomiting, unspecified, Z90.49 - Acquired absence of other specified parts of digestive tract Coding Level of Care Code Global (15877) Diagnoses Bilious vomiting with nausea R11.14 Vomiting type: bilious vomiting S/P laparoscopic cholecystectomy Z90.49
[2024-10-29 11:40] VITALS: RESP 18; BMI 50.3
--- OUTSIDE RECORDS SUMMARY | 2024-10-29 12:20 | XMS_ITS ---
Author Name [facility] Organization Unknown Care Team Organization Name Specialty Phone Email Start Date End Da te [facility] Phyllis Martines Primary Care 11/10/2022 [facility] La Heck DO Primary Care 06/07/202210/04 [facility] NULL Primary Care 01/11/2022 10/23/2023
--- OUTSIDE RECORDS SUMMARY | 2024-10-29 12:20 | XMS_ITS | Clinical Summary ---
Author Organization [facility] Address [address] [address] Phone Care Team Providers Care Record Press Supervisor Name Role Phone Pcp, Unknown Primary Care Provider Unavailabl e Allergies Active Allergy Reactions Criticality Noted Date Comments Fish Derived 08/26/2024 [place] Milk Containing Products (Dairy) [place] Oil-[place]-3 Fatty Acids 06/28 Medications ACETAMINOPHEN ORAL Take by mouth. Activ e ARIPiprazole (ABILIFY) 15 MG tablet TAKE 1/2-1 TABLET BY MOUTH ONCE A DAY MOOD STABILITY Active escitalopram oxalate (LEXAPRO) 10 MG tablet TAKE 1 TABLET BY MOUTH EVERY MORNING DEPRESSION 5 Active hydrOXYzine (ATARAX) 25 MG tablet TAKE 1-2 TABLET BY MOUTH EVERY NIGHT AT BEDTIME NEEDED FOR INSOMNIA 5 Active methylphenidate HCl (METADATE ER) 10 MG ER tablet Take 10 mg by mouth every morning. 5 Active Encounters Date Type Department Care Team Description 08/26/2024 12:50 PM EDT Office Visit [facility] at [address] [address] Cesar Chacon PA-C Sprain of ankle, subsequent encounter (Primary Dx) 08/19/2024 1:30 PM EDT Office Visit [facility] at [address] [address] Yen Bullock CNP Sprain of unspecified ligament of right ankle, initial encounter (Primary Dx) 08/12/2024 4:44 PM EDT - 08/12/2024 11:59 PM EDT Hospital Encounter [facility], X-Ray - [address] [address] Cesar Chacon PA-C Discharge Disposition: Home or Self Care 08/12/2024 2:50 PM EDT Office Visit [facility] at [address] [address] Cesar Chacon PA-C Sprain of unspecified ligament of right ankle, initial encounter (Primary Dx) from Last 3 Months Social History Tobacco Use Types Packs/Day Years Used Date Smoking Tobacco: Never Assessed Education Answer Date Recorded Are you interested in more education? Not on keyla e 08/12/2024 Are you concerned about learning? Not on file 08/12/2024 No 08/12/2024 No 08/12/2024 Digital Access Answer Date Recorded No 08/12/2024 No 08/12/2024 Reliable internet access at home? Not on file 08/12/2024 Device with a working camera? Not on file Comments Unknown Sex and Gender Information Value Date Recorded Sex Assigned at Not on file Legal Sex Female 2:09 PM EDT Gender Identity Not on file Sexual Orientation Not on file Last Filed Vital Signs Vital Sign Reading Time Taken Comments Blood Pressure 112/77 08/26/2024 1:51 PM EDT Pulse 89 08/26/2024 1:51 PM EDT Temperature 36.4 C (97.6 F) 08/26/2024 1:51 PM EDT Respiratory Rate 16 08/26/2024 1:51 PM EDT Oxygen Saturation 100% 08/26/2024 1:51 PM EDT Inhaled Oxygen Concentration - - Weight 136.1 kg (300 lb) 08/26/2024 1:51 PM EDT Height 165.1 cm (5' 5 ) 08/26/2024 1:51 PM EDT Body Mass Index 49.92 08/26/2024 1:51 PM EDT Plan of Treatment Health Maintenance Due Date Last Done Comments DEPRESSION SCREENING 2011 SMOKING Hx and SMOKELESS TOBACCO SCREENING 10/04/2012 HEPATITIS C SCREENING 10/04/2017 HIV ONE-TIME SCREENING (18-65 YEARS) 10/04/2017 PAP SMEAR 10/04/2020 COVID-19 VACCINE ( season) 2023 07/23/2020, 07/02/2020 Adult Td,Tdap Booster 09/01/2032 09/01/2022, 012 HIB VACCINES Completed 01/09/2001, 08/2000, 10/18/2000, Additional history exists PNEUMOCOCCAL VACCINES (0-49 years) Aged Out 01/09/2007, 05/02/2000, 02/15/2000 No longer eligible based on patient's age to complete this topic HPV VACCINES Completed 06/29/2015, 06/05/2013 MENINGOCOCCAL VACCINES (ACWY) Completed 10/14/2016, 06/05/2013 HEPATITIS A VACCINES Aged Out No long er eligible based on patient's age to complete this topic MENINGOCOCCAL VACCINES (B) Aged Out N o longer eligible based on patient's age to complete this topic Medical Devices Not on file Procedures Procedure Name Priority Date/Time Associated Diagnosis Comments XR ANKLE 3 OR MORE VIEWS (RIGHT) Urgent/patient waiting 08/12/2024 4:50 PM EDT Sprain of unspecified ligament of right ankle, initial encounter from Last 3 Months Results * XR ANKLE 3 OR MORE VIEWS (RIGHT) (08/12/2024 4:50 PM EDT) Anatomical Region Laterality Modality Ankle Right Computed Radiogr aphy 08/12/2024 5:44 PM EDT Impressions 08/12/2024 5:45 PM EDT Soft tissue swelling of the right ankle. No acute osseous abnormality. Narrative 08/12/2024 5:45 PM EDT XR ANKLE 3 OR MORE VIEWS (RIGHT) Referring clinician's provided indication for this examination in Epic: Pain; Trauma; S/P Fall; lateral ankle pain, swelling, dec ROM pain with Wt bearing after rolled ankle today at work COMPARISON: None FINDINGS: There is moderate soft tissue swelling of the ankle and calf. No acute fracture or dislocation. Talar dome is intact. Ankle mortise is symmetric. Small talar and navicular dorsal osteophytes are present. Procedure Note Na Kaur MD, PhD - 08/12/2024 XR ANKLE 3 OR MORE VIEWS (RIGHT) Referring clinician's provided indication for this examination in Epic:Pain; Trauma; S/P Fall; lateral ankle pain, swelling, dec ROM pain with Wtbearing after rolled ankle today at work COMPARISON: None FINDINGS: There is moderate soft tissue swelling of the ankle and calf. No acutefracture or dislocation. Talar dome is intact. Ankle mortise is symmetric.Small talar and navicular dorsal osteophytes are present. IMPRESSION: Soft tissue swelling of the right ankle. No acute osseous abnormality. Cesar Chacon PA-C IMG XR LOWER EXTREMI TY Final Result from Last 3 Months [facility] [employer] [employer] Care Teams Record Press Supervisor Relationship Specialty Start Date End Date Pcp, Unknown PCP - General 08/12/24 Additional Source Comments The information contained in this document represents components of the legal health record. It is not the complete legal health record.[facility]
== END 2024-10-29 11:51 | disposition home or self-care (01) ==
LOC: HO.HGS 11:24
PROVIDERS: Visit Provider Surgery
DX: R11.14 Bilious vomiting (principal); Z90.49 Acquired absence of other specified parts of digestive tract
CPT/HCPCS: 99024

== ENCOUNTER 2024-12-05 11:50 | Outpatient (REF) | payer OTHER, SELFPAY ==
--- NOTE | ~2024-12-05 | CT_ITS ---
EXAMINATION: CT ABDOMEN AND PELVIS WITH CONTRAST CLINICAL INFORMATION: R11.2 - Nausea with vomiting, unspecified COMPARISON: Abdomen ultrasound September 01, 2024 TECHNIQUE: Multidetector volumetric images were obtained from the superior aspect of the liver through the pubic symphysis following administration 85 mL of Omnipaque 350 intravenous contrast. Sagittal and coronal reformatted images were obtained on the technologist's workstation. Oral contrast: No This CT examination was performed using dose optimization techniques as appropriate, variously including the following: *Automated exposure control *Adjustment of mA and/or kV according to patient size (this includes techniques or standardized protocols for targeted exams where dose is matched to indication/reason for exam; i.e. extremities or head) *Use of iterative reconstruction technique FINDINGS: LUNG BASES: The visualized lung bases are unremarkable. LIVER, GALLBLADDER, AND BILIARY TREE: The liver is normal in size, shape, and attenuation. No focal hepatic lesion or biliary ductal dilatation is present. The gallbladder is surgically absent. There are clips in the gallbladder fossa. PANCREAS: Unremarkable. SPLEEN: Unremarkable. ADRENAL GLANDS: Unremarkable. KIDNEYS AND URETERS: The kidneys are normal in size, shape, and attenuation. No hydronephrosis, hydroureter, or calculi seen. No perinephric stranding. BLADDER: Unremarkable. GASTROINTESTINAL TRACT: The small and large bowel are unremarkable. The appendix is unremarkable. ABDOMINAL WALL: No significant hernia is appreciated. LYMPH NODES: Normal. VASCULAR: Unremarkable. PELVIC VISCERA: There is a hypoattenuating left ovarian mass measuring 3.2 x 4.4 cm and 27 Hounsfield units. Uterus and right ovary are unremarkable. OSSEOUS STRUCTURES: Unremarkable. CT/CT abdomen pelvis w IV con IMPRESSION: Indeterminate left ovarian cyst. Consider nonemergent pelvic ultrasound. Fleischner guidelines were followed. Electronically signed by: Shelton Moise MD 12/05/2024 03:59 PM EDT
--- OUTSIDE RECORDS SUMMARY | 2024-12-05 13:36 | XMS_ITS | Clinical Summary ---
Author Organization [facility] Address [address] [address] Phone Care Team Providers Care Flanging Roll Operator Name Role Phone Pcp, Unknown Primary Care Provider Unavailabl e Allergies Active Allergy Reactions Criticality Noted Date Comments Fish Derived 08/26/2024 [place] Milk Containing Products (Dairy) [place] Oil-[place]-3 Fatty Acids 06/28 Medications ACETAMINOPHEN ORAL Take [...] mg by mouth every morning. 5 Active Social History Tobacco Use Types Packs/Day Years [...] SCREENING (18-65 YEARS) 10/04/2017 PAP SMEAR 10/04/2020 INFLUENZA VACCINE (#1) 2024 , 03/31/2020, 03/22/2018, Additional history exists COVID-19 VACCINE ( season) 2024 07/23/2020, 07/02/2020 Adult Td,Tdap Booster 09/01/2032 09/01/2022, [...] this topic Medical Devices Not on file Insurance [facility] H[facility] [employer] Care Teams Flanging Roll Operator Relationship Specialty Start Date End Date Pcp, Unknown PCP - General 08/12/24 Additional Source Comments The information contained in this document represents components of the legal health record. It is not the complete legal health record.[facility]
[2024-12-05] MEDS: iohexoL 350 MG/ML 100 ML INFUS..BTL IV (15:14)
[2024-12-05] MEDS: Barium Sulfate Oral (Vanilla) 450 ML ORAL.SUSP 900 ML PO (15:14)
== END 2024-12-05 11:51 | disposition home or self-care (01) ==
LOC: HO.CT 11:50
PROVIDERS: Visit Provider Surgery
DX: R11.2 Nausea with vomiting, unspecified (principal); Z90.49 Acquired absence of other specified parts of digestive tract
CPT/HCPCS: 74177; Q9967

== ENCOUNTER → 2024-12-05 12:09 | Outpatient (BNV) | payer OTHER, SELFPAY | PROVIDERS: Visit Provider Radiology Diagnostic Radiology | DX: R11.2 Nausea with vomiting, unspecified (principal) | CPT/HCPCS: 74177 ==

== ENCOUNTER 2024-12-17 14:55 | Outpatient (AMB) | payer OTHER, SELFPAY ==
--- NOTE | 2024-12-17 15:03 | A.OFFVIS_ITS ---
Vital Signs 12/17/24 15:04 Height 5 ft 4 in Weight 293 lb 3.437 oz BMI 50.3 Respiration 16 Pulse 80 Intake Visit Reasons: Discuss abdomen pelvis CT Intake Note: Patient is seen in office for CT scan results, post lap cosmo. Pt c/o: episodes of nausea and pain are less frequent- down to once a week CT:12/05/24 Heavy Forger Required: No Accompanied by: Self / Same As Patient Allergies No Known Allergies Allergy (Verified 12/17/24 15:04) Medication List - Last Reconciled 12/17/24 by Yaw Cheng MD aripiprazole 7.5 mg PO DAILY docusate sodium (Colace) 100 mg PO BID escitalopram oxalate 15 mg PO DAILY hydroxyzine HCl 25 - 50 mg PO BEDTIME PRN methylphenidate HCl ER 10 mg PO DAILY HPI Comments Details: 24-year-old female patient returning status post laparoscopic cholecystectomy with a period of persistent nausea and vomiting postoperatively, usually occurring in the morning previously evaluated on 10/29/2024. At that time a CT abdomen and pelvis was requested. She returns today to review this CT abdomen and pelvis. The CT reveals no evidence of obstruction with passage of contrast into the colon. No fluid collections or abscesses identified. Of note, a left ovarian cyst or mass was identified and a dedicated pelvic ultrasound was recommended. Since her last visit and the patient reports feeling much improved with only occasional nausea with no further vomiting. She denies any fever or chills. [facility] Medical History No known health problems Surgical History S/P laparoscopic cholecystectomy (09/03/24) Social History Household Members: Significant Other and Other Household Members Other:: fiance and roomate Housing: Apartment Alcohol intake: current Alcohol intake frequency: holidays/special occasions only Comment: patient moderate risk post surgery Patient Tobacco Use Status: Current someday Tobacco user Tobacco use type: Cigarette Cigarettes Per Day: 0 Years Smoked: 1 Second Hand Smoke Exposure: No Substance Use Type: Marijuana service: No Review of Systems Const All systems reviewed & are unremarkable except as noted in HPI and below Physical Exam Vital Signs: Last Vital Signs Pulse 80 12/17/24 15:04 Resp 16 12/17/24 15:04 BMI result Body Mass Index 50.3 Const General: no acute distress Nutritional Appearance: well nourished Orientation/consciousness: patient oriented x3 Resp Effort & Inspection: normal respiratory effort GI Other: Soft, nondistended, well-healed trocar incisions without hernia or infection. Skin Other: Warm, dry, no rash Neuro General: patient oriented x3 Extrem Other: No edema Assessment & Plan Assessment & Plan (1) Symptomatic cholelithiasis: Code(s): K80.20 - Calculus of gallbladder without cholecystitis without obstruction Category: Medical (2) Nausea & vomiting: Code(s): R11.2 - Nausea with vomiting, unspecified Category: Medical Qualifiers: Vomiting type: bilious vomiting Qualified Code(s): R11.14 - Bilious vomiting (3) Left ovarian cyst: Code(s): N83.202 - Unspecified ovarian cyst, left side Category: Medical Plan Patient returns to review the CT findings. No evidence of infection or obstruction noted by CT. Incidentally noted left ovarian cyst is identified. A dedicated pelvic ultrasound is recommended and has been requested. I reviewed the findings in detail with the patient and she expressed understanding. Overall she is much improved today. I will keep her informed of the ultrasound findings once available. Orders: Orders pelvic limited Today N83.202 - Unspecified ovarian cyst, left side Coding Level of Care Code Global (13844) Diagnoses Symptomatic cholelithiasis K80.20 Bilious vomiting with nausea R11.14 Vomiting type: bilious vomiting Left ovarian cyst N83.202
[2024-12-17 15:04] VITALS: PULSE 80; RESP 16; BMI 50.3
--- OUTSIDE RECORDS SUMMARY | 2024-12-17 17:50 | XMS_ITS | Clinical Summary ---
Author Organization [facility] Address [address] [address] Phone Care Team Providers Care Core Extruder Name Role Phone Pcp, Unknown Primary Care Provider Unavailabl e Allergies Active Allergy Reactions Criticality Noted Date Comments Fish Derived 08/26/2024 [place] Milk Containing Products (Dairy) [place] Oil-[place]-3 Fatty Acids 06/28 Medications ACETAMINOPHEN ORAL Take [...] topic Medical Devices Not on file Insurance [facility] HMO [employer] Care Teams Core Extruder Relationship Specialty Start Date End Date Pcp, Unknown PCP - General 08/12/24 Additional Source Comments The information contained in this document represents components of the legal health record. It is not the complete legal health record.[facility]
== END 2024-12-17 15:08 | disposition home or self-care (01) ==
LOC: HO.HGS 14:56
PROVIDERS: Visit Provider Surgery
DX: K80.20 Calculus of gallbladder without cholecystitis without obstruction (principal); R11.14 Bilious vomiting; N83.202 Unspecified ovarian cyst, left side
CPT/HCPCS: 99213